=== PATIENT | female | born 1935 | race Caucasian/White ===

== ENCOUNTER 2017-01-02 10:30 | Inpatient (IN) | payer OTHER ==
--- NOTE | ~2017-01-02 | CT71 ---
[facility] A Service of [facility] RADIOLOGY TEXT RESULTS PATIENT: MARIA L ANGEL LOCATION: [facility] : 37 UNIT #: [id number] AGE: [address]: Bharath Amado MD SEX: F ORDER DR: [id number] [facility] [address] [place], [place] [address] [id number] I MR#: [id number] Acc #: [id number] NAME: MARIA L ANGEL : 1935 SEX: F STUDY DATE/TIME: 01/02/2017 13:57 UNIT: CEDOF ROOM: 07015 STUDY DESCRIPTION: CT Head Wo Contrast Attending Physician: Sukumar Horne M.D. Ordering Physician: Viraj Castillo D.O. Primary Care Physician: Dave Hawthorne D.O. MEDICAL IMAGING REPORT This report is preliminary unless electronic signature is present EXAM CT head. DATE OF EXAM 01/02/2017 HISTORY Confusion. Disoriented for [address] head performed skull base through vertex without intravenous contrast. This CT exam was performed with one or more of the following radiation dose reduction techniques: automatic exposure control, adjustment of mA and/or kV according to patient size, and iterative reconstruction. COMPARISON 06/07/2016. FINDINGS No hemorrhage. No evidence of acute cortical ischemia. Extensive periventricular and deep white matter tract probable sequelae of chronic microvascular ischemia. Midline structures nondisplaced. No acute basal ganglia abnormality. Ventricles, cisterns and sulci show moderate generalized enlargement consistent with moderate generalized atrophy. There are basal ganglia calcifications. Cavernous carotid and distal vertebral arterial calcifications. Intraorbital soft tissues unremarkable. No intra or extraaxial mass effect or abnormal intracranial fluid collection. The visualized paranasal sinuses and mastoid air cells show mucosal thickening bilateral mastoid air cells. No acute bony abnormality. IMPRESSION 1. No acute abnormalities seen in brain. If the patient has ongoing [facility] A Service of [facility] RADIOLOGY TEXT RESULTS PATIENT: MARIA L ANGEL LOCATION: [facility] 463- : 37 UNIT #: [id number] AGE: [address]: Bharath Amado MD SEX: F ORDER DR: neurologic symptoms, consider follow-up imaging. 2. Moderate generalized atrophy. 3. Extensive chronic periventricular and deep white matter tract probable sequelae of chronic microvascular ischemia. 4. Vascular calcifications. 5. Mucosal thickening in bilateral mastoid air cells. Correlate with clinical signs or symptoms of mastoid inflammation. Dictated by... Víctor Gray M.D. THIS IS AN ELECTRONICALLY VERIFIED REPORT Víctor Gray M.D. at 01/03/2017 2:14 PM INO/armani TD: 01/02/2017 15:21 JOB #: [id number] MEDICAL IMAGING REPORT Page 1 of 1 COPY
--- NOTE | ~2017-01-02 | CR150 ---
[facility] A Service of [facility] RADIOLOGY TEXT RESULTS PATIENT: MARIA L ANGEL LOCATION: [facility]3- : 37 UNIT #: [id number] AGE: [address]: Bharath Amado MD SEX: F ORDER DR: [id number] [facility] [address] [place], [place] [address] [id number] I MR#: [id number] Acc #: [id number] NAME: MARIA L ANGEL : 1935 SEX: F STUDY DATE/TIME: 01/04/2017 8:32 UNIT: [facility] ROOM: [facility] STUDY DESCRIPTION: CR Hip Min 2 Views Lt Attending Physician: Bharath Amado M.D. Ordering Physician: Reji Ragsdale M.D. Primary Care Physician: Dave Hawthorne D.O. MEDICAL IMAGING REPORT This report is preliminary unless electronic signature is present EXAM Left hip, 2 intraoperative spot views. HISTORY Open reduction and internal fixation. FINDINGS 2 spot views were obtained during hip procedure performed by Dr. Ragsdale. Dictated by... Rivera Walter M.D. THIS IS AN ELECTRONICALLY VERIFIED REPORT Rivera Walter M.D. at 01/06/2017 10:31 AM TEV/pc TD: 01/04/2017 14:04 JOB #: [id number] MEDICAL IMAGING REPORT Page 1 of 1 COPY
--- NOTE | ~2017-01-02 | HP ---
Unit #: [id number] #: [id number] Patient: MARIA L ANGEL [id number] [address] [address] [id number] I MR#: [id number] NAME: MARIA L ANGEL ROOM: 33257 Age: 81 Sex: F Admission Date: 01/02/2017 : 1935 Attending Physician: Sukumar Horne M.D. Primary Care Physician: Dave Hawthorne D.O. HISTORY AND PHYSICAL CHIEF COMPLAINT Altered mental status. HISTORY OF PRESENT ILLNESS The patient is a 81-year-old female with history of hyperlipidemia, dementia, brought to the emergency room with altered mental status. The patient has not been acting herself for the last one month with history of dementia and with decreased oral intake. The patient had MRI of the hip on December 29 that showed the findings suggestive of possible stress fracture on the left posterior superior femoral head and neck junction with bone edema. The patient has been followed with Dr. Zepeda, Orthopaedics, and recommended for close monitoring. The patient has been cared by the family and the family is unable to take care anymore because of ongoing for the last one month. Denies any fever, chills, nausea, vomiting. PAST MEDICAL HISTORY History of arrhythmia, hyperlipidemia, dementia. PAST SURGICAL HISTORY Appendectomy, laparoscopy. SOCIAL HISTORY The patient smokes a pack per day. The patient denies any alcohol or any illicit drug abuse. FAMILY HISTORY Reviewed and none. ALLERGIES Penicillin, sulfa, codeine, aspirin. HOME MEDICATIONS 1. Lisinopril. 2. Plavix. 3. Lexapro. 4. Zyprexa. 5. Crestor. 6. Protonix. 7. Valium. REVIEW OF SYSTEMS A 14-point review of systems performed and only pertinent positive findings described above. Remaining are negative. Unit #: [id number] #: [id number] Patient: MARIA L ANGEL PHYSICAL EXAMINATION GENERAL APPEARANCE: The patient is lying on a bed, not in acute distress. VITAL SIGNS: Temperature 97.2. Pulse 60. Respiratory rate 16. Blood pressure 169/62. Sating 100% at room air. HEENT: Head: Atraumatic, normocephalic. ENT: Pupils equal, round, reacting to light and accommodation. Extraocular movements are intact. NECK: Supple. LUNGS: Decreased air entry at the bases. HEART: Regular rate and rhythm. ABDOMEN: Soft. Positive bowel sounds. EXTREMITIES: Tenderness at the left hip with decreased range of motion at the left lower extremity. NEUROLOGIC: Awake, oriented. DIAGNOSTIC STUDIES LABORATORY: Glucose 126, BUN 23, creatinine 0.6, sodium 140, potassium 3.7, chloride 104, bicarb 27, calcium 9.1, total protein 7, albumin 3.37, AST 25, ALT 21, alkaline phosphatase 91. INR 1.1. Troponin 0.05. WBC 9.8, hemoglobin 14.2, hematocrit 44.3, platelets 315. IMAGING: The patient had a chest x-ray with linear left base atelectasis. Hip x-ray shows spurring of the left hip with no obvious fracture. MRI from the outside tested in [facility] and open MRI shows the findings suggestive of a possible stress fracture in the left posterior superior femoral head and neck junction with bone edema. ASSESSMENT 1. Weakness. 2. Stress fracture of the left hip. PLAN To admit the patient to observation of the med/surg floor. OT/PT and desk sergeant evaluation and check the UA with a culture. If it is not done I will repeat the labs again in the morning. The patient will be waiting for the precertification from [facility] as per the case coordinator in the ER and further recommendations will follow. Dictated by Leodan Pineda TD: 01/02/2017 14:01 JOB #: [id number] HISTORY AND PHYSICAL Page 1 of 1 X X HISTORY AND PHYSICAL
--- NOTE | ~2017-01-02 | OR ---
Unit #: [id number] #: [id number] Patient: MARIA L CHANCE [id number] [facility] [address] [place], [place] [address] [id number] I MR#: [id number] NAME: MARIA L CHANCE ROOM: 463 Date of Procedure: 01/04/2017 Admission Date: 01/04/2017 Surgeon: Reji Ragsdale M.D. : 1935 Attending Physician: Bharath Amado M.D. Primary Care Physician: Dave Hawthorne D.O. OPERATIVE REPORT PREOPERATIVE DIAGNOSIS Left femoral neck stress fracture. POSTOPERATIVE DIAGNOSIS Left femoral neck stress fracture. PROCEDURE PERFORMED Cannulated screw fixation of left femoral neck stress fracture. IMPLANTS Poli cannulated screw, 6.5 x 75 mm x2, 6.5 mm x 85 mm x1. SAFETY COUNCIL DIRECTOR Bhumi Cole APRN, RNFA. ANESTHESIA General. ESTIMATED BLOOD LOSS 25 mL. DRAINS None. COMPLICATIONS None apparent. INDICATIONS FOR PROCEDURE Ms. Chance is a 81-year-old female with a one month history of progressive left hip pain with inability to bear weight. She has an MRI and indicative of a tension-sided femoral neck stress fracture. She has now been admitted to [facility] with continued left hip pain. Additionally, she has a history of dementia. We had a long discussion with the patient's family regarding risks, benefits, and alternatives to surgery. They elected to proceed with cannulated screw fixation of the left hip to facilitate unencumbered rehabilitation. They understand that even with fixation, the patient may remain nonambulatory secondary to progressive dementia. However, this at least opportune the chance to attempt to weight bear without worry or concern about developing femoral neck fracture. They elected to proceed. DESCRIPTION OF PROCEDURE Unit #: [id number] #: [id number] Patient: MARIA L CHANCE The patient was identified in the preoperative holding area. The operative site was marked. The patient was brought to the operating room by Anesthesia personnel. A general anesthetic was induced on the hospital bed. The patient was positioned on the fracture table. The left leg was placed out in a traction hunter without any traction applied to the extremity. The right leg was in the fauzia-lithotomy position. The leg was prepped and draped in sterile fashion. An incision was made over the lateral thigh at the proximal location of the lesser trochanter. Dissection was carried down past the IT band down to the femoral cortex. A guide pin was then placed up the inferior femoral neck into the desired location of the femoral head. This was checked on AP and lateral radiographs. Two more guide pins were then placed superiorly both in an anterior-posterior position for a typical inverted triangle pattern. The screw lengths were then measured. The outer cortex was drilled and three screws inserted over the guidewires. The guidewires were removed and the screw positions checked under fluoroscopy. There was no intra-articular penetration. The femoral neck remained in anatomic position. The wound was irrigated with sterile saline via bulb lavage. The wound was closed with 2-0 Vicryl and tiago. Sterile dressings were applied. DISPOSITION Aroused from anesthesia and transferred to the recovery room in stable condition. Dictated by... Leodan Oates/enrrique TD: 01/04/2017 14:44 JOB #: [id number] OPERATIVE REPORT Page 1 of 1 X Reji Ragsdale MD PROCEDURE OPERATIVE NOTE
--- NOTE | ~2017-01-02 | CR72 ---
[facility] A Service of [facility] & [facility] RADIOLOGY TEXT RESULTS PATIENT: MARIA L ANGEL LOCATION: [facility] 463-01 : 37 UNIT #: [id number] AGE: [address]: Bharath Amado MD SEX: F ORDER DR: [id number] [facility] [address] [place], [place] [address] [id number] I MR#: [id number] Acc #: [id number] NAME: MARIA L ANGEL : 1935 SEX: F STUDY DATE/TIME: 01/05/2017 16:45 UNIT: [facility] ROOM: [facility] STUDY DESCRIPTION: CR Chest Single View Portable Attending Physician: Bharath Amado M.D. Ordering Physician: Asuncion Rey M.D. Primary Care Physician: Dave Hawthorne D.O. MEDICAL IMAGING REPORT This report is preliminary unless electronic signature is present EXAM Portable chest 01/05/2017 HISTORY Cough, chest congestion and sore throat for 2 days. FINDINGS There is mild cardiac enlargement. Thoracic aorta is moderately calcified. There has been a decrease in right lower lobe atelectasis or infiltrate. New infiltrate left base characteristic of pneumonia. There are no pleural effusions. No pneumothorax. IMPRESSION 1. Decrease in atelectasis or infiltrate right lower lobe compared with 01/02/2017. 2. New airspace consolidation left lower lobe characteristic of pneumonia. Dictated by... Reji Stafford M.D. THIS IS AN ELECTRONICALLY VERIFIED REPORT Reji Stafford M.D. at 01/06/2017 10:45 AM TORI/aicha TD: 01/06/2017 06:49 JOB #: [id number] MEDICAL IMAGING REPORT Page 1 of 1 COPY
--- NOTE | ~2017-01-02 | CO ---
Unit #: [id number] #: [id number] Patient: MARIA L CHANCE [address] [facility]. [place], [place] [address] [id number] I MR#: [id number] NAME: MARIA L CHANCE ROOM: 463 Age: 81 Sex: F Admission Date: 01/02/2017 : 1935 Attending Physician: Bharath Amado M.D. Primary Care Physician: Dave Hawthorne D.O. Consultation Date: 01/03/2017 CONSULTATION REPORT CHIEF COMPLAINT Left hip pain. HISTORY OF PRESENT ILLNESS Ms. Chance is a 81-year-old female who has been admitted for altered mental status and progressive dementia. She has one-month history of left hip pain and inability to bear weight on the affected extremity. She has now essentially nonambulatory secondary to this pain. She has been seen by Dr. Smalls as an outpatient, who obtained an MRI through [facility]. This is available for our review today. She has been diagnosed with a possible superolateral stress fracture. They were treating this nonoperatively with protected weightbearing. The family has been having difficulty with this and she has now been admitted for possible subacute rehab placement and further evaluation of her altered mental status. The majority of the history is obtained from review of the medical record and discussion with the patient as the patient is capable of providing minimal history herself. The patient is currently comfortable appearing, lying supine on her hospital bed, sleeping. PAST MEDICAL HISTORY Hyperlipidemia, dementia, unspecified arrhythmia. PAST SURGICAL HISTORY Appendectomy. SOCIAL HISTORY The patient smokes one pack of cigarettes daily. She has no alcohol or drug use. She currently lives with family. FAMILY HISTORY Noncontributory to current illness. ALLERGIES Penicillin, sulfa, codeine, and aspirin. HOME MEDICATIONS Lisinopril, Plavix, Lexapro, Zyprexa, Crestor, Protonix, Valium. REVIEW OF SYSTEMS Review of systems is unable to be obtained secondary to the patient's mental status. Unit #: [id number] #: [id number] Patient: MARIA L CHANCE PHYSICAL EXAMINATION GENERAL: Crx-pessgkdxels-dpzqpcgrm female, examined supine on her hospital bed. She is sleeping, but arousable. HEENT: Normocephalic and atraumatic cranium. Pupils are equal, round and reactive to light. CARDIAC: Regular rate and rhythm. PULMONARY: No increased work of breathing. Symmetric chest rise. ABDOMEN: Nondistended. NEUROLOGIC: She follows commands and demonstrates intact motor function in the left lower extremity. Sensation is grossly intact throughout. LYMPHATICS: No evidence of lymphedema or lymphadenopathy in left lower extremity. SKIN: No overlying rashes, ulcers, or lesions are noted. There is no edema and no ecchymosis over the left lower extremity. VASCULAR: Her foot is warm and well perfused with brisk capillary refill. MUSCULOSKELETAL: She has no pain with log rolling of the left hip. Passive hip flexion appears to cause some discomfort, but it is difficult to determine. DIAGNOSTIC STUDIES IMAGING STUDIES: 1. Plain film radiographs of left hip were reviewed. These demonstrate no evidence of fracture and normal-appearing left hip radiographs. 2. MRI from [facility] and [facility] is reviewed. This demonstrates an area of focal edema in the superolateral femoral head. There is a second area of edema along the superolateral neck extending in a more inferior and medial direction. The official report is reviewed as well and this is concerning for separate developing femoral neck stress fracture along the tension side. ASSESSMENT AND PLAN This is a 81-year-old female with left hip pain and a possible developing nondisplaced tension-side superolateral femoral neck stress fracture. We had a long discussion today with family regarding treatment approaches and options. She is currently essentially nonweightbearing on the affected extremity. This is limiting her rehabilitation options. Following this discussion, we have elected for prophylactic stabilization of this stress fracture. In this manner, she may proceed with physical therapy and attempt ambulation without limitation or restriction. I have discussed with the patient's family that her limited mobility may be due to her progressive dementia and that fixing her stress fracture may or may not result in improved ability to participate with physical therapy or improved ambulatory ability. However, it will at least let us know that she is not a risk for completion of a fracture and need for possible more extensive surgery in the form of a hemiarthroplasty. Once we have stabilized her fracture, she may rehab without restriction. As a result of this discussion as noted above, we would like to proceed with a left hip percutaneous cannulated screw fixation tomorrow on 01/04/2017. Dictated by... Reji Ragsdale M.D. SNEHA/enrrique TD: 01/04/2017 05:28 Unit #: [id number] #: [id number] Patient: MARIA L CHANCE JOB #: [id number] CONSULTATION REPORT Page 1 of 1 X Reji Ragsdale MD CONSULTATION REPORT
--- NOTE | ~2017-01-02 | DS ---
Unit #: [id number] #: [id number] Patient: MARIA L ANGEL [id number] [address] [place], [place] [address] [id number] I MR#: [id number] NAME: MARIA L ANGEL ROOM: 46 Age: 81 Sex: F Admission Date: 01/02/2017 : 1935 Discharge Date: 01/08/2017 Attending Physician: Bharath Amado M.D. Primary Care Physician: Dave Hawthorne D.O. DISCHARGE SUMMARY ADMITTING DIAGNOSES 1. Altered mental status. 2. Fall. 3. Possible hip fracture. DISCHARGE DIAGNOSES 1. Altered mental status. 2. Fall. 3. Hip fracture, status post left-sided nailing. 4. Hypertension. 5. Hyperlipidemia. 6. Dementia. 7. Decreased oral intake. 8. Sepsis, secondary to possible aspiration pneumonia involving the left side. LOG RIDER Dr. Reji Ragsdale. HISTORY OF PRESENT ILLNESS The patient is a 81-year-old lady with a past medical history of hyperlipidemia and dementia. She was brought to the emergency room on the with a chief complaint of altered mental status, decreased oral intake. Apparently, she fell a few days prior to the hospitalization. MRI of the hip on December 29 showed stress fracture involving the femoral head and neck junction with bony (1) . HOSPITAL COURSE She was started on IV fluids. Slowly, her mental status improved. She was seen by orthopedic surgery, Dr. Ragsdale. She did have nailing of the left hip. She slowly improved clinically. She also had low-grade fevers. We did check blood cultures, urine cultures. Everything came back negative. Her chest x-ray was suggestive of left lower lobe infiltrate. She was started on antimicrobials and de-escalated to oral antimicrobials. She had a spike of blood pressure this morning. Repeat blood pressures were showing improved blood pressures of 157/52. I spoke with the patient and her daughter and they are agreeable to go to rehab. Will transfer to rehab today. PHYSICAL EXAMINATION On the day of the discharge, her physical examination: VITAL SIGNS: Temperature 98.4, pulse rate 92, respirations 16, blood pressure 157/52. GENERAL: Patient is alert and oriented x3, lying in the bed in no acute Unit #: [id number] #: [id number] Patient: MARIA L ANGEL. HEENT: Normocephalic and atraumatic. No icterus. PERRLA. Extraocular muscles intact. NECK: Supple. No JVD. HEART: S1, S2. Regular rate and rhythm. CHEST: Bilateral equal air entry. Clear to auscultation. ABDOMEN: Soft, nontender. EXTREMITIES: No edema. Normal pulses. DISCHARGE MEDICATIONS 1. Levaquin 750 mg p.o. daily for five days. 2. Lexapro 5 mg daily. 3. Bisacodyl 5 mg p.r.n. for constipation. 4. Colace 100 mg twice daily. 5. MiraLax 17 g twice daily. 6. Crestor 5 mg daily. 7. Lisinopril 20 mg daily. 8. Hydrocodone/Tylenol 5/325 mg one tab p.o. q.8 hours p.r.n. for pain. 9. Plavix 75 mg daily. 10. Esomeprazole 20 mg one capsule p.o. daily. 11. Zyprexa 5 mg p.o. daily. FOLLOWUP She is instructed to follow with orthopedics, primary care in one to two weeks. Total time spent in her discharge, 35 minutes. Dictated by... Leodan Suarez TD: 01/08/2017 10:04 JOB #: [id number] DISCHARGE SUMMARY Page 1 of 1 X X DISCHARGE SUMMARY
--- NOTE | ~2017-01-02 | CR150 ---
[facility] A Service of [facility] RADIOLOGY TEXT RESULTS PATIENT: MARIA L ANGEL LOCATION: [facility] : 37 UNIT #: [id number] AGE: [address]: GUSTAVO BECK MD SEX: F ORDER DR: [id number] [facility] [address] [place], [place] [address] [id number] E MR#: [id number] Acc #: [id number] NAME: MARIA L ANGEL : 1935 SEX: F STUDY DATE/TIME: 01/02/2017 11:53 UNIT: PAM ROOM: STUDY DESCRIPTION: CR Hip Min 2 Views Lt Attending Physician: Viraj Castillo D.O. Ordering Physician: Viraj Castillo D.O. Primary Care Physician: Dave Hawthorne D.O. MEDICAL IMAGING REPORT This report is preliminary unless electronic signature is present EXAM Left hip 2 views 01/02/2017 1153 hours HISTORY 1-month history of left hip pain with left leg weakness. History of stress fracture left hip. COMPARISON CT abdomen and pelvis 05/19/2015. No prior hip film available for comparison. FINDINGS AP pelvis and frog lateral view left hip demonstrate no fracture. There is mild bilateral joint space loss at the hips with normal appearance to the sacroiliac joints and pubic symphysis. Atherosclerotic calcifications are present. IMPRESSION Minimal spurring at the hip joints with minimal joint space loss right greater than left. There is no hip fracture. Pubic symphysis and sacroiliac joints are normal. Atherosclerotic calcifications are present. Dictated by... Brooke Kinsey M.D. THIS IS AN ELECTRONICALLY VERIFIED REPORT Brooke Kinsey M.D. at 01/02/2017 2:31 PM DARRIUS/aicha TD: 01/02/2017 13:06 JOB #: [id number] MEDICAL IMAGING REPORT [facility] A Service of [facility] RADIOLOGY TEXT RESULTS PATIENT: MARIA L ANGEL LOCATION: [facility] [id number] : 37 UNIT #: [id number] AGE: [address]: GUSTAVO BECK MD SEX: F ORDER DR: Page 1 of 1 COPY
--- NOTE | ~2017-01-02 | CR72 ---
[facility] A Service of [facility] RADIOLOGY TEXT RESULTS PATIENT: MARIA L ANGEL LOCATION: [facility] : 37 UNIT #: [id number] AGE: [address]: Viraj Castillo DO SEX: F ORDER DR: [id number] [facility] [address] [place], [place] [address] [id number] MR#: [id number] Acc #: [id number] NAME: MARIA L ANGEL : 1935 SEX: F STUDY DATE/TIME: 01/02/2017 11:49 UNIT: [facility] ROOM: STUDY DESCRIPTION: CR Chest Single View Portable Attending Physician: Viraj Castillo D.O. Ordering Physician: Viraj Castillo D.O. Primary Care Physician: Dave Hawthorne D.O. MEDICAL IMAGING REPORT This report is preliminary unless electronic signature is present EXAM Portable chest. HISTORY Left hip pain, weakness and increasing confusion for a weak. ER protocol. COMPARISON 08/12/06. FINDINGS A portable view of the chest was obtained. The heart size and vascularity are normal. There is some linear subsegmental atelectasis in the right base. The left lung is clear and the bones are normal. IMPRESSION Linear subsegmental atelectasis right base, otherwise no active disease. Dictated by... Mykel Raya M.D. THIS IS AN ELECTRONICALLY VERIFIED REPORT Mykel Raya M.D. at 01/02/2017 1:49 PM ERICKA/aicha TD: 01/02/2017 13:08 JOB #: [id number] MEDICAL IMAGING REPORT Page 1 of 1 COPY
[2017-01-02] MEDS ORDERED: PRINIVIL20 M1 PO (10:51)
[2017-01-02] MEDS ORDERED: ESCITALOPRAM OX10 MG PO (10:52)
[2017-01-02] MEDS ORDERED: CLOPIDOGREL BIS75 MG PO (10:52)
[2017-01-02] MEDS ORDERED: ZYPREXA10 M1 PO (10:53)
[2017-01-02] MEDS ORDERED: CRESTOR5 MG PO (10:53)
[2017-01-02] MEDS ORDERED: ESOMEPRAZOLE MA40 MG PO (10:54)
[2017-01-02] MEDS ORDERED: DIAZEPAM PO (10:55)
[2017-01-02 11:56] LABS: BASOPHIL# 0.1 X10e3 (0-0.3); BASOPHIL% 1.1 % (0-2.5); EOSINOPHIL# 0.4 X10e3 (0-0.7); HEMATOCRIT 44.3 % (35.0-45.0); HEMOGLOBIN 14.2 gm/dL (12.0-16.0); LYMPHOCYTE# 2.5 X10e3 (1.0-3.5); LYMPHOCYTE% 25.5 % (17.0-45.0); MEAN CORPUSCULAR HEMOGLOBIN 27.7 PG (28-34); MEAN CORPUSCULAR HGB CONC 32.2 g/dL (30-36); MONOCYTE# 0.8 X10e3 (0-1.0); MONOCYTE% 7.9 % (3.0-12.0); NEUTROPHIL% 61.5 % (40-75); PLATELET COUNT 315 X10e3 (140-420); RED BLOOD COUNT 5.15 X10e (3.90-5.30); WHITE BLOOD COUNT 9.8 X10e3 (4.0-10.5)
[2017-01-02 11:58] LABS: DIFF IND NO
[2017-01-02 11:59] LABS: POC - CKMB 2.9 ng/mL (0.0-7.9); POC - TROPONIN <0.05 ng/mL (<=0.05)
[2017-01-02 12:15] LABS: INR 1.1; PARTIAL THROMBOPLASTIN TIME 28.2 SECONDS (23.5-31.3); PROTHROMBIN TIME (PATIENT) 11.1 SECONDS (9.6-11.5)
[2017-01-02 12:26] LABS: ALBUMIN SERUM 3.7 g/dL (3.5-5.0); ALKALINE PHOSPHATASE 91 U/L (32-92); ALT (SGPT) 21 U/L (10-40); AST (SGOT) 25 U/L (10-42); BILIRUBIN,TOTAL 0.4 mg/dL (0.2-2.0); BLOOD UREA NITROGEN 23 mg/dL (9-23); BUN/CREATININE RATIO 38.33; CALCIUM SERUM 9.1 mg/dL (8.4-10.2); CARBON DIOXIDE 27 mmol/L (22-31); CHLORIDE 104 mmol/L (100-111); CREATININE SERUM 0.6 mg/dL (0.6-1.4); GLOM FILT RATE Estimated 86.7 mL/min (>60); GLUCOSE FASTING 126 mg/dL (70-110); POTASSIUM 3.7 mmol/L (3.5-5.1); SODIUM 140 mmol/L (135-145)
[2017-01-02 12:31] LABS: BILIRUBIN, DIRECT <0.1 mg/dL (0.0-0.2); BILIRUBIN,INDIRECT 0.3 mg/dL (0.0-0.9)
[2017-01-02 15:05] LABS: URINE SOURCE CLEAN CATCH
[2017-01-02 15:15] LABS: URINE APPEARANCE CLEAR; URINE BILIRUBIN NEG (NEG); URINE BLOOD NEG (NEG); URINE COLOR YELLOW; URINE GLUCOSE NEG (NEG); URINE KETONE NEG (NEG); URINE LEUKOCYTE ESTERASE NEG (NEG); URINE NITRATE NEG (NEG); URINE PROTEIN 1+ (NEG); URINE SPECIFIC GRAVITY 1.022 (1.003-1.035)
[2017-01-02 15:18] LABS: CULTURE INDICATED? YES; U HYALINE CASTS AUWI 0-2 /[LPF]; URINE BACTERIA AUWI 4+ (NEGATIVE); URINE SQUAMOUS EPITHELIAL CELL NONE SEEN /[HPF]
[2017-01-03 02:59] LABS: BASOPHIL# 0.1 X10e3 (0-0.3); BASOPHIL% 0.6 % (0-2.5); DIFF IND NO; EOSINOPHIL# 0.3 X10e3 (0-0.7); EOSINOPHIL% 2.4 % (0.0-7.0); HEMATOCRIT 45.2 % (35.0-45.0); HEMOGLOBIN 14.4 gm/dL (12.0-16.0); LYMPHOCYTE# 3.1 X10e3 (1.0-3.5); LYMPHOCYTE% 23.5 % (17.0-45.0); MEAN CELL VOLUME 85.6 FL (83-96); MEAN CORPUSCULAR HEMOGLOBIN 27.3 PG (28-34); MEAN CORPUSCULAR HGB CONC 31.9 g/dL (30-36); MONOCYTE% 7.9 % (3.0-12.0); NEUTROPHIL# 8.5 X10e3 (1.5-7.1); NEUTROPHIL% 65.6 % (40-75); PLATELET COUNT 318 X10e3 (140-420); RED BLOOD COUNT 5.28 X10e (3.90-5.30); RED CELL DISTRIBUTION WIDTH 15.3 % (11.0-15.5)
[2017-01-03 03:31] LABS: BUN/CREATININE RATIO 31.66; CALCIUM SERUM 9.2 mg/dL (8.4-10.2); CREATININE SERUM 0.6 mg/dL (0.6-1.4); GLOM FILT RATE Estimated 86.7 mL/min (>60); POTASSIUM 3.4 mmol/L (3.5-5.1)
[2017-01-04 03:33] LABS: BUN/CREATININE RATIO 34.28; CALCIUM SERUM 8.7 mg/dL (8.4-10.2); CREATININE SERUM 0.7 mg/dL (0.6-1.4); GLOM FILT RATE Estimated 82.4 mL/min (>60); POTASSIUM 4.4 mmol/L (3.5-5.1)
[2017-01-05 04:32] LABS: CALCIUM SERUM 8.6 mg/dL (8.4-10.2); CREATININE SERUM 0.5 mg/dL (0.6-1.4); GLOM FILT RATE Estimated 92.1 mL/min (>60); POTASSIUM 4.3 mmol/L (3.5-5.1)
[2017-01-06 12:31] LABS: HEMATOCRIT 38.2 % (35.0-45.0); HEMOGLOBIN 12.4 gm/dL (12.0-16.0); MEAN CELL VOLUME 85.5 FL (83-96); MEAN CORPUSCULAR HEMOGLOBIN 27.7 PG (28-34); MEAN CORPUSCULAR HGB CONC 32.4 g/dL (30-36); MEAN PLATELET VOLUME 7.5 FL (6.5-11.5); RED BLOOD COUNT 4.47 X10e (3.90-5.30); WHITE BLOOD COUNT 13.1 X10e3 (4.0-10.5)
[2017-01-06 12:35] LABS: URINE APPEARANCE CLEAR; URINE BILIRUBIN NEG (NEG); URINE BLOOD NEG (NEG); URINE COLOR YELLOW; URINE GLUCOSE NEG (NEG); URINE KETONE NEG (NEG); URINE LEUKOCYTE ESTERASE TRACE (NEG); URINE NITRATE NEG (NEG); URINE PROTEIN NEG (NEG); URINE SPECIFIC GRAVITY 1.011 (1.003-1.035); URINE UROBILINOGEN 0.2 MG/DL (NEG)
[2017-01-06 12:46] LABS: URBCS1 AUWI 0-2 /[HPF] (0-2); URINE BACTERIA AUWI NEG (NEGATIVE); URINE SQUAMOUS EPITHELIAL CELL OCC /[HPF]
[2017-01-06 13:48] LABS: BUN/CREATININE RATIO 32.5; CALCIUM SERUM 8.8 mg/dL (8.4-10.2); CREATININE SERUM 0.4 mg/dL (0.6-1.4); GLOM FILT RATE Estimated 99.1 mL/min (>60); POTASSIUM 4.5 mmol/L (3.5-5.1)
[2017-01-07 03:38] LABS: BASOPHIL# 0.1 X10e3 (0-0.3); BASOPHIL% 0.9 % (0-2.5); EOSINOPHIL# 0.4 X10e3 (0-0.7); EOSINOPHIL% 2.7 % (0.0-7.0); HEMATOCRIT 35.6 % (35.0-45.0); HEMOGLOBIN 11.4 gm/dL (12.0-16.0); LYMPHOCYTE# 1.9 X10e3 (1.0-3.5); LYMPHOCYTE% 14.3 % (17.0-45.0); MEAN CORPUSCULAR HEMOGLOBIN 27.2 PG (28-34); MONOCYTE# 1.4 X10e3 (0-1.0); MONOCYTE% 10.1 % (3.0-12.0); NEUTROPHIL# 9.8 X10e3 (1.5-7.1); PLATELET COUNT 248 X10e3 (140-420); RED BLOOD COUNT 4.18 X10e (3.90-5.30); RED CELL DISTRIBUTION WIDTH 15.4 % (11.0-15.5); WHITE BLOOD COUNT 13.6 X10e3 (4.0-10.5)
[2017-01-07 03:40] LABS: DIFF IND NO
[2017-01-07 04:01] LABS: CALCIUM SERUM 8.4 mg/dL (8.4-10.2); CREATININE SERUM 0.5 mg/dL (0.6-1.4); GLOM FILT RATE Estimated 92.1 mL/min (>60); POTASSIUM 4.3 mmol/L (3.5-5.1)
[2017-01-08 03:35] LABS: BASOPHIL# 0.1 X10e3 (0-0.3); BASOPHIL% 0.8 % (0-2.5); EOSINOPHIL# 0.9 X10e3 (0-0.7); EOSINOPHIL% 6.3 % (0.0-7.0); HEMATOCRIT 39.9 % (35.0-45.0); HEMOGLOBIN 12.8 gm/dL (12.0-16.0); LYMPHOCYTE# 3.3 X10e3 (1.0-3.5); LYMPHOCYTE% 23.2 % (17.0-45.0); MEAN CELL VOLUME 86.6 FL (83-96); MEAN CORPUSCULAR HEMOGLOBIN 27.9 PG (28-34); MEAN CORPUSCULAR HGB CONC 32.2 g/dL (30-36); MEAN PLATELET VOLUME 8.7 FL (6.5-11.5); MONOCYTE# 1.3 X10e3 (0-1.0); MONOCYTE% 8.9 % (3.0-12.0); NEUTROPHIL# 8.6 X10e3 (1.5-7.1); NEUTROPHIL% 60.8 % (40-75); PLATELET COUNT 285 X10e3 (140-420); RED CELL DISTRIBUTION WIDTH 15.5 % (11.0-15.5); WHITE BLOOD COUNT 14.1 X10e3 (4.0-10.5)
[2017-01-08 03:36] LABS: DIFF IND NO
[2017-01-08 03:43] LABS: CALCIUM SERUM 8.9 mg/dL (8.4-10.2); CREATININE SERUM 0.4 mg/dL (0.6-1.4); GLOM FILT RATE Estimated 99.1 mL/min (>60); POTASSIUM 4.1 mmol/L (3.5-5.1)
== END 2017-01-08 13:27 | DRG 480 ==
LOC: CED 10:30 → C4C 13:00 → CEDOF 13:00 → C4C 13:00 → CEDOF 13:24 → CED 13:24 → CEDOF 16:20 → C4C 16:20 → CED 01-04 06:15 → C4C 01-04 06:15 → CEDOF 01-04 06:15 → C4C 01-04 13:00 → CED 01-04 13:00 → CEDOF 01-04 13:00 → C4C 01-08 13:27
PROVIDERS: Emergency Medicine; Internal Medicine; Orthopaedic Surgery
PROC: 0QH704Z Insertion of Internal Fixation Device into Left Upper Femur, Open Approach (ICD-10-PCS; principal; 2017-01-04 07:30)
DX: M84.352A Stress fracture, left femur, initial encounter for fracture (principal); A41.9 Sepsis, unspecified organism; J18.9 Pneumonia, unspecified organism; W19.XXXA Unspecified fall, initial encounter; F17.210 Nicotine dependence, cigarettes, uncomplicated; R41.82 Altered mental status, unspecified; I10 Essential (primary) hypertension; E78.5 Hyperlipidemia, unspecified; F03.90 Unspecified dementia, unspecified severity, without behavioral disturbance, psychotic disturbance, mood disturbance, and anxiety; Z88.6 Allergy status to analgesic agent; Z88.5 Allergy status to narcotic agent; Z88.0 Allergy status to penicillin; Z88.2 Allergy status to sulfonamides
CPT/HCPCS: 36415; 70450; 71010; 73502; 76001; 80048; 80076; 81003; 82553; 82947; 83735; 84484; 85025; 85027; 85610; 85730; 87040; 87086; 92526; 92610; 94760; 97110; 97112; 97163; 97167; 97530; 97535; 99285; C1713; G8978-GP; G8979-GP; G8987-GO; G8988-GO; G8996-GN; G8997-GN; G8998-GN; J0360; J0690; J0696; J1650; J2405; J3010; J3370